=== PATIENT | male | born 1945 ===

== ENCOUNTER 2020-05-08 23:39 | Inpatient (IN) | payer OTHER, MEDICARE ==
[~2020-05-08] VITALS: Ht 172.7 cm; Wt 97.0 kg
[~2020-05-08 23:39] MED LIST: ACET325 PO; Aspir 8181 MG PO; CLON.5 PO; DULO60 PO; QUET200 PO; Ranitidine HCl300 M1 PO; Vitamin B-121000 MCG PO
[2020-05-09] MEDS ORDERED: DIAZ10 PO (00:06)
[2020-05-09] MEDS ORDERED: MELA3 PO (00:10)
[2020-05-09] MEDS ORDERED: Vitamin D2000 UNIT PO (00:11)
[2020-05-09] MEDS ORDERED: FISH OIL-VIT D1 EACH PO (00:11)
[2020-05-09] MEDS ORDERED: B-1100 M2 PO (00:11)
[2020-05-09] MEDS ORDERED: OMEP20ER PO (00:11)
[2020-05-09] MEDS ORDERED: MULTI-VITAMIN1 EAC2 PO (00:12)
[2020-05-09] MEDS ORDERED: PYRI100 PO (00:12)
[2020-05-09] MEDS ORDERED: IBUP600 PO (00:12)
[2020-05-09] MEDS ORDERED: LACT PO (00:12)
[2020-05-09 00:33] LABS: BASOPHILS ABSOLUTE AUTO 0.01 K/mm3 (0.00-0.23); BASOPHILS PERCENT AUTO 0 % (0-2); EOSINOPHILS ABSOLUTE AUTO 0.04 K/mm3 (0.00-0.68); EOSINOPHILS PERCENT AUTO 2 % (0-6); IMMATURE GRAN PERCENT AUTO 0 % (0-1); LYMPHOCYTES ABSOLUTE AUTO 0.38 K/mm3 (0.84-5.20); LYMPHOCYTES PERCENT AUTO 14 % (21-46); MONOCYTES ABSOLUTE AUTO 0.11 K/mm3 (0.16-1.47); MONOCYTES PERCENT AUTO 4 % (4-13); Mean Corpuscular HGB Conc 31.6 g/dL (31.5-36.5); Mean Corpuscular Volume 92 fL (80-100); Mean Platelet Volume 11.2 fL (9.1-12.4); NEUTROPHILS PERCENT AUTO 80 % (41-73); Platelet Count 261 K/mm3 (150-400); RDW Coefficient Variation 13.8 % (11.7-14.2); RDW Standard Deviation 46.8 fL (35.1-46.3); Red Blood Cell Count 4.14 M/mm3 (4.30-5.90); White Blood Cell Count 2.64 K/mm3 (4.00-11.30)
[2020-05-09 00:45] LABS: Alanine Aminotransfer (ALT/SGP 20 U/L (12-78); Albumin, Blood 3.1 g/dL (3.4-5.0); Albumin/Globulin Ratio 0.9 (0.8-1.8); Alk Phos 69 U/L (50-136); Anion Gap 4 mmol/L (6-16); Aspartate Aminotrans (AST/SGOT 15 U/L (12-37); Bilirubin, Total 0.4 mg/dL (0.1-1.0); Blood Urea Nitrogen 15 mg/dL (8-24); Bun/Creatinine Ratio 19.4 (12.0-20.0); CO2, Blood 31 mmol/L (21-32); Calcium, Blood 10.5 mg/dL (8.5-10.1); Chloride, Blood 102 mmol/L (98-108); Creatinine, Blood 0.78 mg/dL (0.60-1.20); Globulin, Blood 3.3 g/dL (2.2-4.0); Glomerular Filtration Rate >60 (60-); Glucose, Blood 124 mg/dL (70-99); Sodium, Blood 137 mmol/L (136-145); Total Protein, Blood 6.4 g/dL (6.4-8.2)
[2020-05-09 00:52] LABS: BAND PERCENT MAN 16 % (0-8); BASOPHILS PERCENT MAN 0 % (0-2); EOSINOPHILS PERCENT MAN 0 % (0-6); LYMPHOCYTES ABSOLUTE MAN 0.44 K/mm3 (0.84-5.20); LYMPHOCYTES PERCENT MAN 17 % (21-46); METAMYELOCYTE ABSOLUTE MAN 0.02 K/mm3 (0.00-0.00); METAMYELOCYTE PERCENT MAN 1 % (0-0); MONOCYTES ABSOLUTE MAN 0.05 K/mm3 (0.16-1.47); MONOCYTES PERCENT MAN 2 % (4-13); NEUTROPHILS ABSOLUTE MAN 2.11 K/mm3 (1.96-9.15); SEG NEUTROPHILS PERCENT MAN 64 % (41-73); TOTAL CELLS COUNTED 100
[2020-05-09 04:05] LABS: Influenza A, PCR Negative (NEGATIVE); Influenza B, PCR Negative (NEGATIVE); Resp Syncytial Virus, PCR Negative (NEGATIVE); SARS-Cov-2 (COVID-19) PCR, MMC Negative (NEGATIVE)
--- NOTE | 2020-05-09 06:38 | NUR ---
SUMMARY PATIENT ARRIVED TO UNIT FROM ED VIA STRETCHER @0400. PATIENT TRANSFERRED FROM STRETCHER TO BED INDEPENDENTLY AND REPOSITIONS SELF IN BED. PATIENT ARRIVED TO UNIT ON 4L 02 VIA NC AND IS NOW ON 7L VIA NC AND 02 SATS ARE 90-93% LUNG SOUNDS ARE COARSE THROUGHOUT. PATIENT IS HARD OF HEARING AND WEARS HIS HEARING AIDES. PATIENT STATED HIS GIRLFRIEND HELPS HIM WITH EVERYDAY CHORES BECAUSE HE TIRES EASILY. PATIENT REPORTING PAIN, DILAUDID HELD DUE TO LOW BLOOD PRESSURES. LACTIC ACID OF 2.[address] AND 1L BOLUS LR INFUSING. PATIENT ORIENTED TO UNIT, CALL LIGHT IN REACH.
--- NOTE | 2020-05-09 07:30 | NUR ---
Call placed to Dr Vivar as pt is requesting dilaudid for pain. States he is having uncontrolled pain related to left lobectomy 6 weeks ago. Typically takes 10 mg oxycodone Q6H. Pt refuses fentanyl, stating it doesn't help. Pt NPO until speech can see him due to concern for aspiration.
[2020-05-09 10:21] LABS: BASOPHILS ABSOLUTE AUTO 0.01 K/mm3 (0.00-0.23); BASOPHILS PERCENT AUTO 0 % (0-2); EOSINOPHILS ABSOLUTE AUTO 0.02 K/mm3 (0.00-0.68); EOSINOPHILS PERCENT AUTO 0 % (0-6); Hematocrit 33.2 % (37.0-53.0); Hemoglobin 10.7 g/dL (13.5-17.5); IMMATURE GRAN ABSOLUTE AUTO 0.02 K/mm3 (0.00-0.10); IMMATURE GRAN PERCENT AUTO 0 % (0-1); LYMPHOCYTES ABSOLUTE AUTO 1.29 K/mm3 (0.84-5.20); LYMPHOCYTES PERCENT AUTO 18 % (21-46); MONOCYTES ABSOLUTE AUTO 0.26 K/mm3 (0.16-1.47); MONOCYTES PERCENT AUTO 4 % (4-13); Mean Corpuscular HGB 29.3 pg (26.0-34.0); Mean Corpuscular HGB Conc 32.2 g/dL (31.5-36.5); Mean Corpuscular Volume 91 fL (80-100); Mean Platelet Volume 10.7 fL (9.1-12.4); NEUTROPHILS ABSOLUTE AUTO 5.73 K/mm3 (1.96-9.15); NEUTROPHILS PERCENT AUTO 78 % (41-73); Platelet Count 240 K/mm3 (150-400); RDW Standard Deviation 47.4 fL (35.1-46.3); Red Blood Cell Count 3.65 M/mm3 (4.30-5.90); White Blood Cell Count 7.33 K/mm3 (4.00-11.30)
[2020-05-09 10:37] LABS: Alanine Aminotransfer (ALT/SGP 17 U/L (12-78); Albumin, Blood 2.7 g/dL (3.4-5.0); Albumin/Globulin Ratio 0.9 (0.8-1.8); Alk Phos 50 U/L (50-136); Anion Gap 7 mmol/L (6-16); Aspartate Aminotrans (AST/SGOT 13 U/L (12-37); Bilirubin, Total 0.5 mg/dL (0.1-1.0); Blood Urea Nitrogen 13 mg/dL (8-24); Bun/Creatinine Ratio 18.9 (12.0-20.0); CO2, Blood 26 mmol/L (21-32); Calcium, Blood 9.2 mg/dL (8.5-10.1); Chloride, Blood 100 mmol/L (98-108); Creatinine, Blood 0.69 mg/dL (0.60-1.20); Globulin, Blood 3.1 g/dL (2.2-4.0); Glomerular Filtration Rate >60 (60-); Glucose, Blood 101 mg/dL (70-99); Potassium, Blood 4.5 mmol/L (3.5-5.5); Sodium, Blood 133 mmol/L (136-145); Total Protein, Blood 5.8 g/dL (6.4-8.2)
--- NOTE | 2020-05-09 13:16 | NUR ---
At beginning of shift, pt was on 7 LPM NC. At this time, O2 has been titrated down to 2 LPM. SpO2 90% or greater.
--- NOTE | 2020-05-09 17:47 | NUR ---
SUMMARY At this time, pt is medical floor status without telemetry. Patient A&O x 4. Answers questions. Follows commands. Verbalizes needs. Pleasant and cooperative with care. Forgetful at times, but states this is typical for him after head injury several years ago in [place]. Pt is on 2 LPM NC. Reportedly only wears O2 at night at home. Lungs coarse t/o. Productive cough, intially with large amounts of tenacious thick martines sputum but less sputum as shift has continued. Independent in room. Bed in lowest position. Call light in reach. Will continue to closely monitor until care handoff and bedside report with oncoming RN.
[2020-05-10 03:43] LABS: BASOPHILS ABSOLUTE AUTO 0.03 K/mm3 (0.00-0.23); BASOPHILS PERCENT AUTO 0 % (0-2); Hematocrit 31.7 % (37.0-53.0); Hemoglobin 9.8 g/dL (13.5-17.5); LYMPHOCYTES ABSOLUTE AUTO 1.45 K/mm3 (0.84-5.20); LYMPHOCYTES PERCENT AUTO 12 % (21-46); MONOCYTES ABSOLUTE AUTO 0.47 K/mm3 (0.16-1.47); MONOCYTES PERCENT AUTO 4 % (4-13); Mean Corpuscular HGB 28.7 pg (26.0-34.0); Mean Corpuscular HGB Conc 30.9 g/dL (31.5-36.5); Mean Corpuscular Volume 93 fL (80-100); Mean Platelet Volume 11.2 fL (9.1-12.4); Platelet Count 233 K/mm3 (150-400); RDW Coefficient Variation 14.5 % (11.7-14.2); Red Blood Cell Count 3.42 M/mm3 (4.30-5.90); White Blood Cell Count 11.88 K/mm3 (4.00-11.30)
[2020-05-10 03:46] LABS: EOSINOPHILS ABSOLUTE AUTO 0.36 K/mm3 (0.00-0.68); EOSINOPHILS PERCENT AUTO 3 % (0-6); IMMATURE GRAN ABSOLUTE AUTO 0.27 K/mm3 (0.00-0.10); IMMATURE GRAN PERCENT AUTO 2 % (0-1); NEUTROPHILS PERCENT AUTO 78 % (41-73)
[2020-05-10 04:03] LABS: Alanine Aminotransfer (ALT/SGP 16 U/L (12-78); Albumin, Blood 2.5 g/dL (3.4-5.0); Albumin/Globulin Ratio 0.8 (0.8-1.8); Alk Phos 48 U/L (50-136); Anion Gap 2 mmol/L (6-16); Aspartate Aminotrans (AST/SGOT 11 U/L (12-37); Bilirubin, Total 0.3 mg/dL (0.1-1.0); Blood Urea Nitrogen 13 mg/dL (8-24); Bun/Creatinine Ratio 16.2 (12.0-20.0); CO2, Blood 32 mmol/L (21-32); Calcium, Blood 9.1 mg/dL (8.5-10.1); Chloride, Blood 102 mmol/L (98-108); Globulin, Blood 3.2 g/dL (2.2-4.0); Glomerular Filtration Rate >60 (60-); Glucose, Blood 105 mg/dL (70-99); Potassium, Blood 4.1 mmol/L (3.5-5.5); Sodium, Blood 136 mmol/L (136-145); Total Protein, Blood 5.7 g/dL (6.4-8.2)
--- NOTE | 2020-05-10 05:10 | NUR ---
SHIFT SUMMARY NO ACUTE CHANGES. PT REMAINS AXO. NOT ON TELE. BP STABLE. LUNG SOUNDS CONTINUE COARSE, MORE SO TO THE RIGHT LOBE. REMAINS ON 2LNC. PT STATES DIFFICULTY COUGHING UP SECRETIONS IN BASE, PLAN TO BRING IS AND FLUTTEER VALVE INTO ROOM TO FACILITATE EXPECTORATION. PT USING URINAL, VOIDS OFTEN. PT'S PAIN NOT WELL CONTROLLED WITH Q6 TORADOL AND Q4 10/325 OXY. PT STATES HIS HOME REGIMEN IS Q4HRS WITH THE OXYCODONE. OTHERWISE, PT ATTEMPTING TO REST IN ROOM BUT HAS HAD DIFFICULTIES GETTING TO SLEEP. SEROQUEL DC'D AND REMERON STARTD FOR THIS, DOESN'T PRESENT SUCCESFUL BUT THIS COULD BE DUE TO PAINCONTROL. DESTINY LCONTINUE TO MONITOR UNTIL SHIFT CHANGE.
--- NOTE | 2020-05-10 16:54 | NUR ---
SHIFT SUMMARY PT A&Ox4; ANXIOUS BUT COOPERATIVE WITH CARE. PT RESTING IN BED DURING SHIFT, UP TO CHAIR AND SIDE OF BED IND. PT REPORTS HEADACHE AND RIB/ABDOMINAL PAIN, MEDICATED PER EMAR. PT SOB WITH MOVEMENT, SPO2 >90% ON 2L O2 VIA NC. LS COARSE, WORSE ON RIGHT. PT RECIEVING IV ANTIBIOTICS. VSS. NO OTHER ACUTE CHANGES NOTED DURING SHIFT. WILL CONTINUE TO MONITOR UNTIL REPORT GIVEN TO ONCOMING RN.
[2020-05-11 04:16] LABS: BASOPHILS ABSOLUTE AUTO 0.02 K/mm3 (0.00-0.23); BASOPHILS PERCENT AUTO 0 % (0-2); EOSINOPHILS ABSOLUTE AUTO 0.09 K/mm3 (0.00-0.68); EOSINOPHILS PERCENT AUTO 1 % (0-6); Hematocrit 29.9 % (37.0-53.0); Hemoglobin 9.5 g/dL (13.5-17.5); IMMATURE GRAN PERCENT AUTO 3 % (0-1); LYMPHOCYTES ABSOLUTE AUTO 1.12 K/mm3 (0.84-5.20); LYMPHOCYTES PERCENT AUTO 10 % (21-46); MONOCYTES ABSOLUTE AUTO 0.49 K/mm3 (0.16-1.47); MONOCYTES PERCENT AUTO 4 % (4-13); Mean Corpuscular HGB 29.3 pg (26.0-34.0); Mean Corpuscular HGB Conc 31.8 g/dL (31.5-36.5); Mean Corpuscular Volume 92 fL (80-100); Mean Platelet Volume 11.7 fL (9.1-12.4); NEUTROPHILS ABSOLUTE AUTO 9.31 K/mm3 (1.96-9.15); NEUTROPHILS PERCENT AUTO 82 % (41-73); Platelet Count 202 K/mm3 (150-400); RDW Coefficient Variation 14.6 % (11.7-14.2); RDW Standard Deviation 49.1 fL (35.1-46.3); Red Blood Cell Count 3.24 M/mm3 (4.30-5.90); White Blood Cell Count 11.33 K/mm3 (4.00-11.30)
[2020-05-11 04:35] LABS: Anion Gap 6 mmol/L (6-16); Blood Urea Nitrogen 9 mg/dL (8-24); CO2, Blood 29 mmol/L (21-32); Calcium, Blood 8.9 mg/dL (8.5-10.1); Chloride, Blood 101 mmol/L (98-108); Creatinine, Blood 0.64 mg/dL (0.60-1.20); Glomerular Filtration Rate >60 (60-); Glucose, Blood 137 mg/dL (70-99); Sodium, Blood 136 mmol/L (136-145)
--- NOTE | 2020-05-11 06:03 | NUR ---
PT A&Ox4. O2@2LPM VIA NC, SATS >94%. PT DESATS WHEN UP TO VOID OR AMBULATE, SATS >85%. RECOVERS WELL AFTER MOMENTS OF REST. COUGHING UP THICK ROBERTSON/WHITE PHLEGM. PT STATES HE STILL HAS PAIN TO LEFT CHEST FROM THORACIC SURGERY 6 WEEKS AGO. SITE HEALED. PT MEDICATED WITH PRN PAIN MED THROUGHOUT SHIFT. MEDS GIVEN IN APPLESAUCE, NO S/S ASPIRATION. PT STANDS TO VOID CLR YELLOW URINE, STEADY ON FEET. WILL CONTINUE TO MONITOR AND REPORT TO ONCOMING RN
--- NOTE | 2020-05-11 09:17 | NUR ---
DR VICK HERE TO SEE PT. PT REQUESTING TO GO HOME. PT REPORTS HAVING LOW-GRADE FEVER BUT FEELING WELL ENOUGH TO GO HOME. PT REPORTS LIVING WITH FIANCE.
--- NOTE | 2020-05-11 09:50 | NUR ---
PT REQ TO HAVE TEMPERATURE TAKEN. PT TEMP TAKEN ORALLY. TEMP OVER 102. DR VICK AND WARDROBE CUSTODIAN NOTIFIED. DR REPORTED THAT SHE THINKS PT IS WITHDRAWLING FROM [facility]. REPORTS TO GIVE [facility] PO AND IV. REPORTS TO RECHECK TEMP IN APPROX ONE HOUR. REPORTS WILL DECIDE AFTER THAT WHETHER TO CONTINUE WITH DISCHARGE HOME. WARDROBE CUSTODIAN UPDATED ON PT'S TEMP AND STATUS. PT RECENTLY UP TO CHAIR WITH SBA. PT TOLERATED WELL. PT REPORTS THAT HE WILL BE ABLE TO GET INTO HOUSE WITH PT'S WALKER THAT HE REPORTS HIS FIANCE WILL BE BRINGING WITH HER. PT REPORTS GETTING [facility].
[2020-05-11] MEDS ORDERED: BUDESONIDE0.5 MG/21 INH (10:16)
[2020-05-11] MEDS ORDERED: ALBU3IS INH (10:16)
[2020-05-11] MEDS ORDERED: GUAI600T33 PO (10:16)
[2020-05-11] MEDS ORDERED: LIDOCAINE1 EAC1 TOP (10:19)
[2020-05-11] MEDS ORDERED: PERCOCET 10-321 EAC4 PO (10:20)
[2020-05-11] MEDS ORDERED: TRAZ100 PO (10:21)
[2020-05-11] MEDS ORDERED: AMOCLA875 PO (10:23)
--- NOTE | 2020-05-11 11:55 | NUR ---
PT IS CALM AND DOES NOT APPEAR TO BE ANXIOUS AT THIS TIME. PT CONT TO REPORT READY TO GO HOME WHEN ABLE.
--- NOTE | 2020-05-11 11:56 | NUR ---
TEMP RECENTLY 98.0, DISCUSSED WITH SHIP KEEPER. SHIP KEEPER REPORTS DISCUSSING TEMP WITH DR VICK WHO REPORTS TO CONTINUE WITH DISCHARGE TODAY ORDERED.
--- NOTE | 2020-05-11 13:19 | NUR ---
DISCHARGE: PT EATING AND DRINKING, VOIDING, PASSING GAS. PT REPORTS WILL HAVE BM WHEN AT HOME. PT UP INDEPENDENT WITH STEADY GAIT. PT REPORTS HAVING O2 AT HOME AND FOR WHILE IN CAR. PT/FAMILY REPORTS UNDERSTANDING OF DISCHARGE INSTRUCTIONS. PT MEDICATION[facility] TO [facility] PER PEST CONTROL SUPERVISOR. PEST CONTROL SUPERVISOR ASSISTED WITH DISCHARGE INCLUDING PAPERWORK. PT OUT BY W/C WITH FAMILY GIVING PT RIDE HOME. PT REPORTS PAIN TOLERABLE ON PO PAIN MEDICATION. PT SENT WITH PAPERWORK, SCRIPT, BELONGINGS.
== END 2020-05-11 13:20 | disposition home or self-care (01) | DRG 871 ==
LOC: ER 23:39 → PCU 05-09 04:01
PROVIDERS: Emergency Medicine; Internal Medicine; ADMIT Family Medicine
DX: A41.9 Sepsis, unspecified organism (principal); J18.9 Pneumonia, unspecified organism; J96.21 Acute and chronic respiratory failure with hypoxia; J44.0 Chronic obstructive pulmonary disease with (acute) lower respiratory infection; Z20.828 Contact with and (suspected) exposure to other viral communicable diseases; G47.00 Insomnia, unspecified; F41.9 Anxiety disorder, unspecified; D64.9 Anemia, unspecified; E83.52 Hypercalcemia; K21.9 Gastro-esophageal reflux disease without esophagitis; Z85.118 Personal history of other malignant neoplasm of bronchus and lung; Z79.82 Long term (current) use of aspirin; Z87.891 Personal history of nicotine dependence
CPT/HCPCS: 0241U; 36415; 71045; 71260; 80048; 80053; 83605; 83880; 84484; 85025; 87070; 87077; 87186; 87205; 92610; 93005; 93010; 94640; 94760; 94762; 96365; 96375; 99285-25; A9270; A9270-GY; C9113; J1170; J1650; J1885; J2543; J3010; J3360; J3370; J7050; J7120; Q9967

== ENCOUNTER 2020-07-12 06:51 | Emergency (ER) | payer OTHER, MEDICARE ==
[~2020-07-12] VITALS: Ht 172.7 cm; Wt 79.4 kg
[~2020-07-12 06:51] MED LIST changes: +ALBU3IS INH; +AMOCLA875 PO; +B-1100 M2 PO; +BUDESONIDE0.5 MG/21 INH; +DIAZ10 PO; +FISH OIL-VIT D1 EACH PO; +GUAI600T33 PO; +IBUP600 PO; +LACT PO; +LIDOCAINE1 EAC1 TOP; +MELA3 PO; +MULTI-VITAMIN1 EAC2 PO; +OMEP20ER PO; +PERCOCET 10-321 EAC4 PO; +PYRI100 PO; +TRAZ100 PO; +Vitamin D2000 UNIT PO
[2020-07-12 08:05] LABS: Calcium, Ionized (POC) 1.22 mmol/L (1.10-1.46); Chloride (POC) 99 mmol/L (98-108); Creatinine (POC) 0.6 mg/dL (0.8-1.3); Glucose (ISTAT POC) 103 mg/dL (70-99); Hemoglobin (POC) 12.9 g/dL (13.5-17.5); Potassium (POC) 4.2 mmol/L (3.5-5.5); Sodium (POC) 132 mmol/L (135-148); Total CO2 (POC) 23 mmol/L (21-32)
[2020-07-12 08:06] LABS: BASOPHILS ABSOLUTE AUTO 0.04 K/mm3 (0.00-0.23); BASOPHILS PERCENT AUTO 1 % (0-2); EOSINOPHILS ABSOLUTE AUTO 0.16 K/mm3 (0.00-0.68); EOSINOPHILS PERCENT AUTO 4 % (0-6); Hematocrit 38.6 % (37.0-53.0); Hemoglobin 12.3 g/dL (13.5-17.5); IMMATURE GRAN ABSOLUTE AUTO 0.01 K/mm3 (0.00-0.10); IMMATURE GRAN PERCENT AUTO 0 % (0-1); LYMPHOCYTES ABSOLUTE AUTO 1.73 K/mm3 (0.84-5.20); LYMPHOCYTES PERCENT AUTO 38 % (21-46); MONOCYTES ABSOLUTE AUTO 0.34 K/mm3 (0.16-1.47); MONOCYTES PERCENT AUTO 8 % (4-13); Mean Corpuscular HGB 28.1 pg (26.0-34.0); Mean Corpuscular HGB Conc 31.9 g/dL (31.5-36.5); Mean Corpuscular Volume 88 fL (80-100); Mean Platelet Volume 10.4 fL (9.1-12.4); NEUTROPHILS ABSOLUTE AUTO 2.27 K/mm3 (1.96-9.15); NEUTROPHILS PERCENT AUTO 50 % (41-73); Platelet Count 158 K/mm3 (150-400); RDW Coefficient Variation 14.6 % (11.7-14.2); RDW Standard Deviation 47.5 fL (35.1-46.3); Red Blood Cell Count 4.38 M/mm3 (4.30-5.90); White Blood Cell Count 4.55 K/mm3 (4.00-11.30)
[2020-07-12] MEDS ORDERED: MELA3 PO (08:10)
[2020-07-12] MEDS ORDERED: DULO60 PO (08:10)
[2020-07-12] MEDS ORDERED: DIAZ5 PO (08:10)
[2020-07-12] MEDS ORDERED: TRAZ150T57 PO (08:10)
[2020-07-12] MEDS ORDERED: OMEP20ER PO (08:11)
[2020-07-12] MEDS ORDERED: PYRI100 PO (08:12)
[2020-07-12] MEDS ORDERED: B-1100 M1 PO (08:12)
[2020-07-12] MEDS ORDERED: Vitamin B-121000 MCG PO (08:12)
[2020-07-12] MEDS ORDERED: FISH OIL-VIT D1 EACH PO (08:12)
[2020-07-12] MEDS ORDERED: LACT PO (08:13)
[2020-07-12] MEDS ORDERED: ACET325 PO (08:13)
[2020-07-12] MEDS ORDERED: IBUP600 PO (08:13)
[2020-07-12] MEDS ORDERED: ASPI81CH PO (08:13)
[2020-07-12 08:23] LABS: Alanine Aminotransfer (ALT/SGP 26 U/L (12-78); Albumin, Blood 3.7 g/dL (3.4-5.0); Albumin/Globulin Ratio 1.2 (0.8-1.8); Alk Phos 68 U/L (50-136); Anion Gap 9 mmol/L (6-16); Aspartate Aminotrans (AST/SGOT 14 U/L (12-37); Bilirubin, Total 0.3 mg/dL (0.1-1.0); Blood Urea Nitrogen 7 mg/dL (8-24); Bun/Creatinine Ratio 11.3 (12.0-20.0); CO2, Blood 25 mmol/L (21-32); Calcium, Blood 9.4 mg/dL (8.5-10.1); Chloride, Blood 101 mmol/L (98-108); Creatinine, Blood 0.62 mg/dL (0.60-1.20); Globulin, Blood 3.2 g/dL (2.2-4.0); Glomerular Filtration Rate >60 (60-); Glucose, Blood 98 mg/dL (70-99); Potassium, Blood 4.3 mmol/L (3.5-5.5); Sodium, Blood 135 mmol/L (136-145); Total Protein, Blood 6.9 g/dL (6.4-8.2)
[2020-07-12 09:26] LABS: Source, Urine Voided
[2020-07-12 09:35] LABS: Appearance, Urine Clear (Clear); Bilirubin, Urine Neg (Neg); Blood, Urine Neg (Neg); Color, Urine Yellow (P-Yellow); Glucose Qualitative, Urine Neg (Neg); Ketones, Urine 2+ (Neg); Leukocyte Esterase, Urine Neg (Neg); Nitrite, Urine Neg (Neg); Protein, Urine Neg (Neg); Urobilinogen, Urine NORM (Normal)
[2020-10-18] MEDS ORDERED: MULVITA PO (05:42)
[2020-10-18] MEDS ORDERED: QUET300 PO (05:43)
[2020-10-18] MEDS ORDERED: VITAMIN D32000 UNI1 PO (05:44)
[2020-12-03] MEDS ORDERED: DIAZ10 PO (08:12)
[2020-12-03] MEDS ORDERED: TRAM50 PO (08:20)
[2020-12-03] MEDS ORDERED: MIRALAX17 GM PO (08:20)
[2020-12-03] MEDS ORDERED: DOCU100 PO (08:20)
[2020-12-03] MEDS ORDERED: LORA2 PO (08:21)
[2020-12-03] MEDS ORDERED: QUET100 PO (08:21)
== END 2020-07-12 10:09 | disposition home or self-care (01) ==
LOC: ER 06:51
PROVIDERS: Emergency Medicine
DX: R10.12 Left upper quadrant pain (principal); G89.29 Other chronic pain; Z88.8 Allergy status to other drugs, medicaments and biological substances; Z79.84 Long term (current) use of oral hypoglycemic drugs; Z79.899 Other long term (current) drug therapy
CPT/HCPCS: 36415; 74177; 80047; 80053; 81003; 83690; 85014; 85025; 96361; 96374-59; 96375; 99284-25; J1170; J2405; J7030; Q9967

== ENCOUNTER 2020-10-15 01:24 | Observation (INO) | payer OTHER, MEDICARE ==
[~2020-10-15] VITALS: Ht 175.3 cm; Wt 68.0 kg
[~2020-10-15 01:24] MED LIST changes: +ASPI81CH PO; +B-1100 M1 PO; +DIAZ5 PO; +TRAZ150T57 PO
[2020-10-15 03:38] LABS: BASOPHILS ABSOLUTE AUTO 0.01 K/mm3 (0.00-0.23); BASOPHILS PERCENT AUTO 0 % (0-2); EOSINOPHILS PERCENT AUTO 0 % (0-6); Hemoglobin 11.7 g/dL (13.5-17.5); IMMATURE GRAN ABSOLUTE AUTO 0.01 K/mm3 (0.00-0.10); IMMATURE GRAN PERCENT AUTO 0 % (0-1); LYMPHOCYTES ABSOLUTE AUTO 1.01 K/mm3 (0.84-5.20); LYMPHOCYTES PERCENT AUTO 20 % (21-46); MONOCYTES ABSOLUTE AUTO 0.24 K/mm3 (0.16-1.47); MONOCYTES PERCENT AUTO 5 % (4-13); Mean Corpuscular HGB 28.8 pg (26.0-34.0); Mean Corpuscular HGB Conc 31.6 g/dL (31.5-36.5); Mean Corpuscular Volume 91 fL (80-100); Mean Platelet Volume 11.9 fL (9.1-12.4); NEUTROPHILS ABSOLUTE AUTO 3.86 K/mm3 (1.96-9.15); NEUTROPHILS PERCENT AUTO 75 % (41-73); Platelet Count 191 K/mm3 (150-400); RDW Coefficient Variation 14.4 % (11.7-14.2); RDW Standard Deviation 48.5 fL (35.1-46.3); Red Blood Cell Count 4.06 M/mm3 (4.30-5.90); White Blood Cell Count 5.13 K/mm3 (4.00-11.30)
[2020-10-15 04:04] LABS: Alanine Aminotransfer (ALT/SGP 35 U/L (12-78); Albumin, Blood 3.7 g/dL (3.4-5.0); Albumin/Globulin Ratio 1.1 (0.8-1.8); Alk Phos 67 U/L (50-136); Anion Gap 5 mmol/L (6-16); Aspartate Aminotrans (AST/SGOT 27 U/L (12-37); Bilirubin, Total 0.4 mg/dL (0.1-1.0); Blood Urea Nitrogen 18 mg/dL (8-24); Bun/Creatinine Ratio 23.7 (12.0-20.0); CO2, Blood 29 mmol/L (21-32); Calcium, Blood 9.2 mg/dL (8.5-10.1); Chloride, Blood 102 mmol/L (98-108); Creatinine, Blood 0.76 mg/dL (0.60-1.20); Ethanol (Alcohol), Blood, Med <3 mg/dL; Globulin, Blood 3.5 g/dL (2.2-4.0); Glomerular Filtration Rate >60 (60-); Glucose, Blood 102 mg/dL (70-99); Salicylate <1.7 mg/dL (2.8-20.0); Sodium, Blood 136 mmol/L (136-145); Thyroid Stimulating Hormone 0.718 uIU/mL (0.360-4.800); Thyroxine (T4) 7.9 ug/dL (4.5-12.1); Total Protein, Blood 7.2 g/dL (6.4-8.2)
[2020-10-15 04:11] LABS: Acetaminophen, Random <2.0 ug/mL (10.0-30.0)
[2020-10-15 05:26] LABS: Source, Urine Clean Catch
[2020-10-15 05:33] LABS: Bilirubin, Urine Neg (Neg); Blood, Urine Neg (Neg); Glucose Qualitative, Urine Neg (Neg); Ketones, Urine 3+ (Neg); Leukocyte Esterase, Urine 3+ (Neg); Nitrite, Urine Pos (Neg); Protein, Urine 1+ (Neg); Urobilinogen, Urine NORM (Normal)
[2020-10-15 05:34] LABS: Appearance, Urine Hazy (Clear); Color, Urine Yellow (P-Yellow)
[2020-10-15 05:43] LABS: Bacteria Many /hpf; Red Blood Cells, Urine Not Seen /hpf (0-2); Squamous Epithelial Cells Not Seen /hpf (Few); U Amphetamine Screen Not Detected; U Barbituate Screen Not Detected; U Benzodiazapine Screen DETECTED; U Buprenorphine Screen Not Detected; U Cannabinoids Screen DETECTED; U Cocaine Screen Not Detected; U Methadone Screen Not Detected; U Methamphetamine Screen Not Detected; U Opiates Screen Not Detected; U Oxycodone Screen Not Detected; U Phencyclidine Screen Not Detected; U Propoxyphene Screen Not Detected; White Blood Cells, Urine TNTC /hpf (0-5)
[2020-10-15] MEDS ORDERED: CEPH500 PO (07:33)
[2020-10-18] MEDS ORDERED: MULVITA PO (05:42)
[2020-10-18] MEDS ORDERED: QUET300 PO (05:43)
[2020-10-18] MEDS ORDERED: VITAMIN D32000 UNI1 PO (05:44)
[2020-12-03] MEDS ORDERED: DIAZ10 PO (08:12)
[2020-12-03] MEDS ORDERED: MIRALAX17 GM PO (08:20)
[2020-12-03] MEDS ORDERED: DOCU100 PO (08:20)
[2020-12-03] MEDS ORDERED: TRAM50 PO (08:20)
[2020-12-03] MEDS ORDERED: QUET100 PO (08:21)
[2020-12-03] MEDS ORDERED: LORA2 PO (08:21)
== END 2020-10-15 08:22 | disposition home or self-care (01) ==
LOC: ER 01:24 → EOR 04:30
PROVIDERS: ADMIT Emergency Medicine
DX: N39.0 Urinary tract infection, site not specified (principal); F03.90 Unspecified dementia, unspecified severity, without behavioral disturbance, psychotic disturbance, mood disturbance, and anxiety; G47.00 Insomnia, unspecified; F43.10 Post-traumatic stress disorder, unspecified; Z87.891 Personal history of nicotine dependence
CPT/HCPCS: 36415; 51701; 70450; 80053; 81001; 82140; 84436; 84443; 85025; 87077; 87086; 87186; 99285-25; A9270; G0378; G0480